=== PATIENT | female | born 1985 | race Caucasian/White ===

== ENCOUNTER 2022-12-29 10:22 | Outpatient (CLI) | payer SELFPAY ==
[2022-12-29 10:41] LABS: Hematocrit 40.9 % (37.0-47.0); Hemoglobin 14.1 g/dL (12.0-15.0); Mean Corpuscular HGB Conc 34.5 g/dl (32-36); Mean Corpuscular Volume 92.7 fl (80-100); Mean Platelet Volume 10.4 fl (7.4-10.4); Platelet Count Result 220 k/mm3 (150-375); Red Blood Count 4.41 M/mm3 (4.2-5.4); Red Cell Distribution Width 12.9 % (11.5-14.5); White Blood Count 10.2 K/mm3 (4.5-10.0)
[2022-12-31 12:37] LABS: Rapid Plasma Reagin Non-Reactive (NonReactive)
== END 2022-12-29 10:23 | disposition home or self-care (01) ==
LOC: ANHLAB 10:26
PROVIDERS: Visit Provider Obstetrics & Gynecology
DX: Z34.93 Encounter for supervision of normal pregnancy, unspecified, third trimester (principal); Z3A.00 Weeks of gestation of pregnancy not specified
CPT/HCPCS: 36415; 85027; 86592; 86850; 86900; 86901

== ENCOUNTER 2022-12-31 05:26 | Inpatient (IN) | payer SELFPAY ==
[2022-12-31] VITALS (45 sets, daily range): BP systolic 92–130; BP diastolic 58–85; PULSE 69–90; RESP 16–20; TEMP 36.1–37.2; O2SAT 96–100; BMI 32.3
--- NOTE | 2022-12-31 05:26 | LDADM ---
This patient, Marilin Lomeli, was admitted to Labor/Delivery/Recovery 119 on 12/31/22 at 05:26. Plans for labor, pain management and were discussed with patient. Patient/family oriented to hospital policies and general routines including ID bracelet, bed and alarms, visiting hours, pain management, procedures, bathroom and other care routines, personal items, smoking policy, room service/diet and guest tray routines, security routines, and visiting hours. Patient/Family are encouraged to report perceived risks to care and to ask questions if they do not understand what they are told or what they should do. See OBIX for further documentation.
--- NOTE | 2022-12-31 06:45 | PM.IMHP ---
H&P: HPI History of Present Illness Date/Time: 12/31/22 06:45 Chief Complaint: Repeat section at term Narrative: this is a 37-year-old 2 para 1 with an EDC of 01/05/2023, confirmed by early visit who presents at term for repeat section. Her has been uncomplicated. There is a 2 vessel cord but growth has been normal. She did have an abnormal diabetic test but she her 3hour GTT was normal [facility] Surgical History Surgical History (Updated 12/31/22 @ 06:47 by Reg Girard MD) History of section (2015) Family History Family History (Updated 12/04/22 @ 13:41 by Yamila Celaya RN) Mother Diabetes mellitus Social History Social History Years smoked: 10 Smoking status: Current every day smoker Tobacco type: cigarettes Substance use: never Lack of Transportation: No Lack of Food: Never True Current Housing: I Have Housing Concerned About Future Housing: No Difficulty Paying Gas/Electric Bills: No Difficulty Paying for Meds: No Currently Unemployed: No Education: Associate Degree Difficulty w/ Childcare or Family Care: No Spiritual care concerns: No Meds Home Medications and Allergies Home Medications Medication Instructions Recorded Confirmed Type omeprazole 20 mg tablet,delayed 20 mg PO DAILY 12/04/22 12/04/22 History release vits no.126-ferrous fum 1 tablet PO DAILY 12/04/22 12/04/22 History 28 mg iron-folic acid 800 mcg tablet (Classic ) Allergies Allergy/AdvReac Type Severity Reaction Status Date / Time No Known Allergies Allergy Verified 12/04/22 13:24 Vital Signs Vital Signs - 24 hr 12/31/22 06:44 Pulse Rate 90 Blood Pressure 94/61 L Exam Const: General: cooperative, healthy appearing and comfortable Nutritional Appearance: average body habitus Orientation/consciousness: oriented to person, oriented to place and oriented to time HENMT: Head: normal to inspection Resp: Effort & Inspection: normal respiratory effort Cardio: Rate: regular rate Rhythm: regular rhythm Heart sounds: S1 normal heart sound present and S2 normal heart sound present GI: Inspection: normal to inspection ( gravid soft uterus) Auscultation: normal bowel sounds : External Female Exam: normal external appearance Speculum Exam - Vagina: normal appearance of the vagina Assessment and Plan Assessment and plan (1) Term : Code(s): Z34.90 - Encounter for supervision of normal , unspecified, unspecified trimester Status: Acute (2) Previous section: Code(s): Z98.891 - History of uterine scar from previous surgery Status: Acute Plan repeat low-transverse section
[2022-12-31] MEDS: LACTATED RINGERS 1,000 ML 999 ML ×2 (06:57→07:27)
[2022-12-31 07:27] LABS: HIV 1/2 Ab P24 Ag Result Negative (Negative)
--- NOTE | 2022-12-31 07:46 | P.PNAN_ITS ---
Anes - Initial Pre Proc Eval Procedure: Operation Date: 12/31/22 07:30 Proposed Procedures p Repeat Section - Reg Girard MD Date/Time: 12/31/22 07:46 Surgeon: Reg Girard MD Pre Op Diagnosis: C/S Patient Data Age: 37 Gender: F Height: 1.52 m Weight: 75 kg Last Vital Signs Pulse 83 12/31/22 06:46 BP 105/66 12/31/22 06:46 Allergies Allergy/AdvReac Type Severity Reaction Status Date / Time No Known Allergies Allergy Verified 12/04/22 13:24 Home Medications Medication Instructions Recorded Confirmed Type omeprazole 20 mg tablet,delayed 20 mg PO DAILY 12/04/22 12/04/22 History release vits no.126-ferrous fum 1 tablet PO DAILY 12/04/22 12/04/22 History 28 mg iron-folic acid 800 mcg tablet (Classic ) hydrocodone 5 mg-acetaminophen 325 1 tablet PO Q4H PRN pain #30 tabs 12/31/22 Rx mg tablet Laboratory Tests 12/31/22 06:17 HIV 1&2 Ab/P24 Ag 4thGn Negative (Negative) Patient hx anesthesia problems: none Family hx anesthesia problems: none Results Review: All pre-operative results and documents have been reviewed as part of the pre- operative evaluation. [facility] Surgical History Surgical History History of section (2015) Family History Family History Mother Diabetes mellitus Social History Social History Years smoked: 10 Smoking status: Current every day smoker Tobacco type: cigarettes Substance use: never Lack of Transportation: No Lack of Food: Never True Current Housing: I Have Housing Concerned About Future Housing: No Difficulty Paying Gas/Electric Bills: No Difficulty Paying for Meds: No Currently Unemployed: No Education: Associate Degree Difficulty w/ Childcare or Family Care: No Spiritual care concerns: No Anes - Eval Final PreProcedure Day of Procedure 12/31/22 07:46 Patient weight: obese Heart: regular rate and rhythm Lungs: decreased breath sounds Airway: Mallampati scale class II Neurological: alert and oriented Last oral intake: >/= 8 hours ASA classification: III Emergent: no Anesthetic plan: proceed Anesthesia type and monitoring: regional spinal and standard monitoring Results Review: All pre-operative results and documents have been reviewed as part of the pre-operative evaluation. Informed Consent: The patient's anesthetic plan and its attendant risks and benefits were discussed with the patient/family/POA. Questions were solicited and answers provided to the satisfaction of the patient/family/POA.
[2022-12-31] MEDS: ceFAZolin 2 GM/D5W 50 ML 2 GM/50 ML BAG 100 GM (08:21)
--- NOTE | 2022-12-31 09:01 | W.PM.PROC2 ---
Procedure Note - Detailed Date of Procedure 12/31/22 Pre-op Diagnosis C/S Post-op Diagnosis Same Procedure Performed Repeat low-transverse section Surgeon Reg Girard MD Anesthesia Spinal Indications 37-year-old female at term with previous section Findings male infant 7 lb 2 oz with Apgars 9 and 9 at 1 and 5 minutes respectively Description of Procedure the patient was prepped draped in normal sterile fashion placed in the supine position. Under excellent spinal anesthetic the abdomen was entered in Pfannenstiel fashion progressive layers to fascia. Fascia incised midline care number fashion bilaterally. Prep perineum began clamped and by sharp dissection carried superior and inferiorly bladder. Bladder blade placed. Bladder flap returned. A low-transverse incision made head delivered in the RUSTY position. Anterior posterior delivered spontaneously. Cord clamped x2 and cut infant passed off the table given Apgars of 9 [id number]. Cord blood was drawn to. Placenta then delivered intact manually. Uterus delivered wrapped in a moist towel. After assuring no membranes or remained in the uterus, the uterus closed continuous running 0 Vicryl from lateral edge lateral edge. This was followed 2nd imbricating from hemostasis was assured. Irrigation undertaken to clear. The uterus returned to the abdomen after reviewing the ovaries and tubes within. The hysterotomy incision inspected 1 time. Laps removed and accounted for. Fascia closed with continuous running 0 Vicryl from lateral edge lateral edge. Irrigation subcutaneous and skin closed with 4 Monocryl glue. EBL was 305. All sponge, needle, instrument counts were correct. There were no immediate complications noted Estimated Blood Loss 305 Drains No Packing No Pathology None sent Complications No immediate complications Condition Stable Disposition PACU
[2022-12-31] MEDS: OXYTOCIN 30 UNITS/NS 500 ML 30 UNITS/500 ML BAG 125 UNITS IV CONT (10:40)
[2022-12-31] MEDS: diphenhydrAMINE HCl INJ 50 MG/ML VIAL 25 MG IV PUSH (12:43)
--- NOTE | 2022-12-31 15:03 | PC.NURSE ---
[id number] Introductions were made, then consulted with patient to assess needs related to . Mother led the conversation with her?plans to feed?her infant and the?experience so far. Mother works well with her with encouragement and education. Encouraged understanding of the benefits of skin to skin (demonstrating unwrapping and placing upright on her chest), stimulating with massage touch, changing positions to encourage wakefulness, how to watch for early feeding cues, responsive feeding, feeding on demand (aiming for 8-12 times in 24 hours, about every 2-3 hours), milk production, building/maintaining a milk supply, duration of feeding, signs of adequate intake/output and how to record on the feeding sheet. Reviewed positioning and ear, shoulder, hip alignment, supporting the breast to facilitate a deep latch, asymmetrical latch (off-center), leading with the chin with a big, open, wide gape and body close to mother. Infant latched optimally to the right breast in football position. Education given to mother of how to visualize suck/swallow ratios and listen for drinking at the breast. Infant was able to maintain latch without discomfort to mother. Nipple care reviewed with optimal latch and good positioning. Reviewed good handwashing when or touching the breast/nipples to prevent infection. Resources used to facilitate learning were used with the visual handouts. Mother voiced understanding of skin to skin, stimulating with massage touch, responsive feedings, talking to to encourage if it has been 2 -2.5 hours since the start of the last , to call if does not latch, or if there is discomfort with . Resources provided for inpatient/outpatient with feeding sheet and name written on the communication board. Mother voiced understanding of information, demonstrated learning and will call if there is a request for assistance. Reported to the Primary RN.
[2022-12-31] MEDS: DOCUSATE SODIUM 100 MG CAPSULE PO (16:45)
[2022-12-31] MEDS: POLYSACCHARIDE IRON COMPLEX 150 MG CAPSULE PO (16:45)
[2023-01-01 01:00] VITALS: BP 94/52; PULSE 88; RESP 18; TEMP 37
[2023-01-01 05:00] VITALS: BP 94/64; PULSE 84; RESP 20; TEMP 37.1
[2023-01-01 05:06] LABS: Basophils Percent Auto 0.2 % (0.2-1.2); Eosinophils Absolute Auto 0.1 K/mm3 (0-0.3); Eosinophils Percent Auto 0.4 % (0-4.4); Hematocrit 31.9 % (37.0-47.0); Hemoglobin 10.8 g/dL (12.0-15.0); Immature Granulocyte Absolute 0.04 K/mm3 (0.00-0.031); Immature Granulocyte Percent A 0.3 % (0-0.5); Lymphocytes Absolute Auto 2.78 K/mm3 (0.9-3.2); Lymphocytes Percent Auto 24.2 % (18.3-44.2); Mean Corpuscular HGB Conc 33.9 g/dl (32-36); Mean Corpuscular Hemoglobin 31.6 pg (26-34); Mean Corpuscular Volume 93.3 fl (80-100); Mean Platelet Volume 10.8 fl (7.4-10.4); Monocytes Absolute Auto 1.2 K/mm3 (0.1-0.6); Monocytes Percent Auto 10.3 % (2.6-8.5); Neutrophils Absolute Auto 7.4 K/mm3 (1.3-6.7); Neutrophils Percent Auto 64.6 % (45.5-73.1); Platelet Count Result 184 k/mm3 (150-375); Red Blood Count 3.42 M/mm3 (4.2-5.4); Red Cell Distribution Width 12.9 % (11.5-14.5); White Blood Count 11.5 K/mm3 (4.5-10.0)
[2023-01-01] MEDS: IBUPROFEN 600 MG TABLET PO ×4 (05:09→23:32)
--- NOTE | 2023-01-01 06:35 | P.PNOB_ITS ---
OB - PN: Subj Subjective Date/time seen: 01/01/23 06:36 Patient comments: no complaints and pain well controlled baby status: doing well OB - PN: Obj Data Labs 01/01/23 04:56 Labs: Laboratory Results - last 24 hr 12/31/22 01/01/23 06:17 04:56 WBC 11.5 H RBC 3.42 L Hgb 10.8 L D Hct 31.9 L MCV 93.3 MCH 31.6 MCHC 33.9 RDW 12.9 Plt Count 184 MPV 10.8 H Immature Gran % (Auto) 0.3 Neut % (Auto) 64.6 Lymph % (Auto) 24.2 [place] % (Auto) 10.3 H Eos % (Auto) 0.4 Baso % (Auto) 0.2 Lymph # (Auto) 2.78 [place] # (Auto) 1.2 H Eos # (Auto) 0.1 Baso # (Auto) 0.0 Abs Immat Gran (auto) 0.04 H Absolute Neuts (auto) 7.4 H Absolute Nucleated RBC 0.0 Nucleated RBC % 0.0 HIV 1&2 Ab/P24 Ag 4thGn Negative OB - PN A/P Plan day: 1 Plan: routine care Time Spent With Patient Time: Total time spent is greater than 50% in coordination of care (as documented) at patient's floor/unit and/or counseling patient: Time with patient: less than 15 minutes Exam Const: General: cooperative, healthy appearing and comfortable Nutritional Appearance: average body habitus Orientation/consciousness: oriented to person, oriented to place and oriented to time HENMT: Head: normal to inspection Resp: Effort & Inspection: normal respiratory effort Cardio: Rate: regular rate Rhythm: regular rhythm Heart sounds: S1 normal heart sound present and S2 normal heart sound present GI: Inspection: normal to inspection and incision (cdi)
--- NOTE | 2023-01-01 06:37 | P.DS_ITS ---
DS: Admitting Diagnosis Discharge Date 01/02/23 Admitting Diagnosis Term /previous section DS: Discharge Diagnosis Discharge Diagnosis (1) Previous section: Code(s): Z98.891 - History of uterine scar from previous surgery Status: Acute (2) Term : Code(s): Z34.90 - Encounter for supervision of normal , unspecified, unspecified trimester Status: Acute DS: Summary Hospital Course Reason for hospitalization: patient was admitted on 06/01/2022. For repeat section. Hospital Course: Her hospital course thereafter was unremarkable. She remained afebrile. She was up, eating regular diet, ambulating, voiding without difficulty, and generally without complaints. Time Spent with Patient Time attestation: Total time spent providing and/or coordinating discharge services: Exam Const: General: cooperative, healthy appearing and comfortable Nutritional Appearance: average body habitus Orientation/consciousness: oriented to person, oriented to place and oriented to time Resp: Effort & Inspection: normal respiratory effort Cardio: Rate: regular rate Rhythm: regular rhythm Heart sounds: S1 normal heart sound present and S2 normal heart sound present GI: Inspection: normal to inspection and incision ( Wound is clean dry and intact) DS: Data Data Completed and Pending Labs on day of discharge: Labs from last 24 hours 01/01/23 12/31/22 04:56 06:17 WBC 11.5 H RBC 3.42 L Hgb 10.8 L D Hct 31.9 L MCV 93.3 MCH 31.6 MCHC 33.9 RDW 12.9 Plt Count 184 MPV 10.8 H Immature Gran % (Auto) 0.3 Neut % (Auto) 64.6 Lymph % (Auto) 24.2 [place] % (Auto) 10.3 H Eos % (Auto) 0.4 Baso % (Auto) 0.2 Lymph # (Auto) 2.78 [place] # (Auto) 1.2 H Eos # (Auto) 0.1 Baso # (Auto) 0.0 Abs Immat Gran (auto) 0.04 H Absolute Neuts (auto) 7.4 H Absolute Nucleated RBC 0.0 Nucleated RBC % 0.0 HIV 1&2 Ab/P24 Ag 4thGn Negative Discharge Plan Discharge Attending physician on discharge: Reg Whitmore Discharging Clinician: Reg Whitmore Patient Disposition: Home, Self-Care Activity: may shower, no straining and pelvic rest Diet: heart healthy Wound Care Instructions: follow printed instructions Patient Instructions: Antibiotic Form Stand Alone Forms: General Discharge Information Follow-up/Referrals: Reg Whitmore MD [Physician] - Discharge Medications: New hydrocodone-acetaminophen 5-325 mg tablet 1 tablet PO Q4H PRN (Reason: pain) Qty: 30 0RF Continued omeprazole 20 mg Tablet,Delayed Release (Dr/Ec) 20 mg PO DAILY Classic 28 mg iron- 800 mcg Tablet 1 tablet PO DAILY Date of admission: 12/31/22 05:26 Primary Care Provider: Humberto Miller Admitting Provider: Reg Whitmore Attending physician on admission: Reg Whitmore Condition: Stable
[2023-01-01] MEDS: SIMETHICONE 80 MG TAB.CHEW PO ×2 (07:41→14:41)
[2023-01-01] MEDS: LANOLIN (LANSINOH) 7.5 GM CREAM 1 APPLIC TOPICAL (07:41)
[2023-01-01] MEDS: MULTIVIT/MIN/PREN/FOL AC/IRON TABLET 1 TAB PO (07:41)
[2023-01-01] MEDS: DOCUSATE SODIUM 100 MG CAPSULE PO ×2 (07:41→17:27)
[2023-01-01 07:50] VITALS: BP 102/68; PULSE 86; RESP 16; TEMP 37; O2SAT 100
--- NOTE | 2023-01-01 13:07 | WPDANLDPN2 ---
Anes-Prog Note L&D Date/Time: 01/01/23 13:07 Neuro status: Neuro function grossly intact. Vital Signs: Last Vital Signs Temp 37.0 C 01/01/23 07:50 Pulse 86 01/01/23 07:50 Resp 16 01/01/23 07:50 BP 102/68 01/01/23 07:50 Pulse Ox 100 01/01/23 07:50 O2 Del Method Room Air 12/31/22 16:00 Pain score (VAS): 0 I/O: Intake & Output 12/31/22 01/01/23 01/01/23 23:59 07:59 15:59 Intake Total 1999 1200 Output Total 2100 2300 300 Balance -100 -1100 -300 Patient feedback: Patient satisfied with anesthetic care.
--- NOTE | 2023-01-01 13:07 | WPDANLDNPN2 ---
Anes-Prog Note L&D-Neuraxial Date/Time: 01/01/23 13:07 Patient feedback: Patient satisfied with post-operative pain management.
--- NOTE | 2023-01-01 13:36 | PC.NURSE ---
[id number] Consulted with patient to assess needs related to . Mother led conversation with her experience with feeding baby so far. Mother works well with her infant with encouragement. Reviewed working with , supporting breast and how to protect the nipples with an optimal deep latch, good positioning, and good hand washing. Encouraged understanding the benefits of skin to skin, responding to feeding cues, frequencies of feeding 8-12 times in 24 hours (approximately 2-3 hours), duration of feedings, milk production, intake/output feeding sheet and signs of adequate intake encouraging swallowing at the breast. Reviewed positioning and alignment, supporting breast with a sandwich hold, off-centered (asymmetrical latch) and leading with the chin with big, open, wide gape. latched optimally to the right breast in football position. Education given to mother of how to visualize suck/swallow ratios and listen for drinking at the breast. Mother was encouraged to offer both breast often every 2-2.5 while she is awake, use gentle compression, gentle breast massage to encourage more drinking at the breast as infant demonstrates rare swallowing. has had a void at 0655, then stool and void at 1000 this morning. was able to maintain latch without discomfort to mother. Nipple care reviewed with optimal latch, good positioning and using clean hands when feeding her and touching her breast. Resources used to facilitate learning were used from the mom and baby guide. Mother voiced understanding of the education shared, to call for assistance if the does not latch or if there is discomfort with . Reported to the primary RN.
[2023-01-01 20:35] VITALS: BP 109/71; PULSE 84; RESP 18; TEMP 36.9
[2023-01-02] MEDS: IBUPROFEN 600 MG TABLET PO (05:20)
--- NOTE | 2023-01-02 06:31 | PM.OBPNVD ---
OB - PN: Subj Subjective Date/time seen: 01/02/23 06:31 Patient comments: no complaints and pain well controlled baby status: doing well and nursing well OB - PN: Obj Data Labs 01/01/23 04:56 OB - PN A/P Plan day: 2 Plan: routine care, discharge home and follow up 6 weeks (4) Time Spent With Patient Time: Total time spent is greater than 50% in coordination of care (as documented) at patient's floor/unit and/or counseling patient: Time with patient: less than 15 minutes Exam Const: General: cooperative, healthy appearing and comfortable Nutritional Appearance: average body habitus Orientation/consciousness: oriented to person, oriented to place and oriented to time HENMT: Head: normal to inspection Resp: Effort & Inspection: normal respiratory effort Cardio: Rate: regular rate Rhythm: regular rhythm Heart sounds: S1 normal heart sound present and S2 normal heart sound present GI: Inspection: normal to inspection and incision (cdi)
[2023-01-02 08:00] VITALS: BP 109/67; PULSE 94; RESP 16; TEMP 37.4; O2SAT 100
[2023-01-02] MEDS: MULTIVIT/MIN/PREN/FOL AC/IRON TABLET 1 TAB PO (08:03)
[2023-01-02] MEDS: DOCUSATE SODIUM 100 MG CAPSULE PO (08:03)
--- NOTE | 2023-01-02 09:03 | PC.NURSE ---
Patient viewed the discharge video Mother & Baby Care, The First Two Weeks . Patient was given the opportunity and encouraged to ask questions. Patient verbalized understanding of information shared and has been given the mother/baby guide for home reference.
[2023-01-03 10:24] VITALS: BP 111/69; PULSE 85; RESP 18; TEMP 36.7; O2SAT 99
== END 2023-01-02 10:40 | disposition home or self-care (01) | DRG 540 ==
LOC: ANHLDR 06:52 → ANHOB2 11:30
PROVIDERS: Admitting Provider Obstetrics & Gynecology; PCP Family Medicine Adolescent Medicine; Visit Provider Obstetrics & Gynecology
PROC: 10D00Z1 Extraction of Products of Conception, Low, Open Approach (ICD-10-PCS; CPT 59514; principal; 2022-12-31 07:30)
DX: O34.211 Maternal care for low transverse scar from previous cesarean delivery (principal); Z37.0 Single live birth; Z3A.39 39 weeks gestation of pregnancy
CPT/HCPCS: 36415; 85025; 86703; A9270; G0432; J0690; J1100; J1200; J1885; J2274; J2371; J2405; J2590; J7120